=== PATIENT | male | born 1980 | race Caucasian/White ===

== ENCOUNTER 2018-06-25 10:50 | Inpatient (IN) | payer OTHER ==
[2018-06-25 12:51] LABS: WHITE BLOOD COUNT 6.9 10^3/ul (4.8-10.8)
[2018-06-25 12:51] LABS: ADD MAN DIFF? NO; BASOPHILS % 0.6 % (0.0-2.0); EOSINOPHILS # 0.3 10^3/ul (0.0-0.5); EOSINOPHILS % 4.5 % (0.0-7.0); HEMATOCRIT 45.7 % (42.0-52.0); HEMOGLOBIN 15.8 g/dl (14.0-18.0); MEAN CORPUSCULAR HEMOGLOBIN 30.7 pg (29.0-33.0); MEAN CORPUSCULAR HGB CONC 34.6 g/dl (32.0-37.0); MEAN CORPUSCULAR VOLUME 88.7 fl (82.0-101.0); MEAN PLATELET VOLUME 11.2 fl (7.4-10.4); MONOCYTE # 0.4 10^3/ul (0.3-0.9); MONOCYTES % 5.1 % (0.0-11.0); NEUTROPHIL # 3.1 10^3/ul (1.6-7.5); NEUTROPHILS % 45.5 % (39.0-77.0); PLATELET COUNT 267 10^3/UL (140-415); RED BLOOD COUNT 5.15 10^6/ul (4.70-6.10); RED CELL DISTRIBUTION WIDTH 11.9 % (11.5-14.5)
[2018-06-25] MEDS ORDERED: ONDANSETRON (ODT) 4 MG TAB ODT (12:53)
[2018-06-25 13:07] LABS: ALANINE AMINOTRANSFERASE 163 IU/L (13-69); ALBUMIN 4.3 g/dl (3.3-4.9); ALBUMIN/GLOBULIN RATIO 1.19; ALKALINE PHOSPHATASE 90 IU/L (42-121); AMYLASE 83 U/L (11-123); ANION GAP 10 (5-13); ASPARTATE AMINO TRANSFERASE 85 IU/L (15-46); BILIRUBIN,INDIRECT 0.2 mg/dl (0-1.1); BILIRUBIN,TOTAL 0.2 mg/dl (0.2-1.3); BLOOD UREA NITROGEN 17 mg/dl (7-20); CARBON DIOXIDE 24 mmol/L (21-31); CHLORIDE 102 mmol/L (97-110); Estimated GFR > 60 mL/min (>60); GLUCOSE 395 mg/dl (70-220); LIPASE 149 U/L (23-300); POTASSIUM 4.4 mmol/L (3.5-5.1); SODIUM 136 mmol/L (135-144); TOTAL PROTEIN 7.9 g/dl (6.1-8.1)
[2018-06-25 13:10] LABS: UR BACTERIA FEW /HPF (NONE SEEN); UR RBC 0 /HPF (0-5); UR WBC 0 /HPF (0-5)
[2018-06-25 13:14] LABS: INR 0.89; PARTIAL THROMBOPLASTIN TIME 23.6 Sec (23.0-35.0); PROTIME 12.2 Sec (11.9-14.9)
[2018-06-25 13:15] LABS: ADD UMIC NO; UR ASCORBIC ACID NEGATIVE (NEGATIVE); UR BILIRUBIN (Dip) NEGATIVE (NEGATIVE); UR BLOOD (Dip) NEGATIVE (NEGATIVE); UR CLARITY CLEAR (CLEAR); UR COLOR YELLOW (YELLOW); UR GLUCOSE (Dip) 3+ mg/dL (NEGATIVE); UR KETONES (Dip) NEGATIVE (NEGATIVE); UR LEUKOCYTE ESTERASE (Dip) NEGATIVE Leu/ul (NEGATIVE); UR NITRITE (Dip) NEGATIVE (NEGATIVE); UR SPECIFIC GRAVITY (Dip) 1.026 (1.003-1.030); UR TOTAL PROTEIN (Dip) NEGATIVE (NEGATIVE); UR UROBILINOGEN (Dip) NEGATIVE (NEGATIVE)
[2018-06-25 13:19] LABS: TROPONIN-I 0.014 ng/ml (0.000-0.120)
[2018-06-25] MEDS ORDERED: ACETAMINOPHEN 325 MG TAB PO (13:30)
[2018-06-25] MEDS ORDERED: ONDANSETRON 4 MG INJ IV ×2 (13:30→17:00)
[2018-06-25] MEDS: AMPHOTERICIN B LIPOSOME 300 MG in DEXTROSE 5% 300 ML IVPB (14:01)
[2018-06-25] MEDS ORDERED: SOD CHLORIDE 0.9% 100 ML (14:27)
[2018-06-25] MEDS ORDERED: IOHEXOL 300MG/ML 150 ML BTL (14:27)
[2018-06-25] MEDS ORDERED: HYDROCODONE/APAP (5/325) TAB PO (17:00)
[2018-06-25] MEDS ORDERED: MAGNESIUM HYDROXIDE 30ML CUP PO (17:00)
[2018-06-25] MEDS ORDERED: NACL 0.9% 3 ML SYG IV (17:00)
[2018-06-25] MEDS ORDERED: AMPHOTERICIN B LIPOSOME 300 MG in DEXTROSE 5% 300 ML IVPB (17:00)
[2018-06-25] MEDS: glipiZIDE 10 MG TAB PO (17:35)
[2018-06-25] MEDS: ACCU-CHEK XX ×2 (17:35→21:00)
[2018-06-25] MEDS ORDERED: GLUCAGON 1 MG INJ IM (18:00)
[2018-06-25] MEDS ORDERED: DEXTROSE 50% 50 ML SYRINGE IV ×2 (18:00)
[2018-06-25] MEDS ORDERED: GLUCOSE GEL 15 GRAM TUBE PO ×2 (18:00)
[2018-06-25] MEDS ORDERED: GLUCOSE GEL 15 GRAM TUBE BUCCAL (18:00)
[2018-06-25] MEDS: SOD CHLORIDE 0.9% 1,000 ML IV (18:01)
[2018-06-25] MEDS: LISINOPRIL 5 MG TAB PO (18:04)
[2018-06-25] MEDS: INSULIN ASPART [NOVOLOG] 3 ML PEN SC ×2 (18:10→20:52)
[2018-06-26] MEDS: ACCU-CHEK XX ×5 (02:00→21:00)
[2018-06-26 05:32] LABS: ADD MAN DIFF? NO
[2018-06-26] MEDS: PANTOPRAZOLE (EC) 40 MG TAB PO (05:43)
[2018-06-26 05:45] LABS: BASOPHIL # 0.1 10^3/ul (0.0-0.1); BASOPHILS % 0.7 % (0.0-2.0); EOSINOPHILS # 0.3 10^3/ul (0.0-0.5); EOSINOPHILS % 4.1 % (0.0-7.0); HEMATOCRIT 46.8 % (42.0-52.0); HEMOGLOBIN 16.2 g/dl (14.0-18.0); LYMPHOCYTES # 2.6 10^3/ul (0.8-2.9); LYMPHOCYTES % 32.3 % (15.0-51.0); MEAN CORPUSCULAR HEMOGLOBIN 30.6 pg (29.0-33.0); MEAN CORPUSCULAR HGB CONC 34.6 g/dl (32.0-37.0); MEAN CORPUSCULAR VOLUME 88.5 fl (82.0-101.0); MEAN PLATELET VOLUME 11.2 fl (7.4-10.4); MONOCYTE # 0.5 10^3/ul (0.3-0.9); MONOCYTES % 6.5 % (0.0-11.0); NEUTROPHIL # 4.5 10^3/ul (1.6-7.5); NEUTROPHILS % 55.9 % (39.0-77.0); PLATELET COUNT 257 10^3/UL (140-415); RED BLOOD COUNT 5.29 10^6/ul (4.70-6.10); RED CELL DISTRIBUTION WIDTH 12.2 % (11.5-14.5)
[2018-06-26 05:45] LABS: WHITE BLOOD COUNT 8.1 10^3/ul (4.8-10.8)
[2018-06-26 05:57] LABS: ALANINE AMINOTRANSFERASE 142 IU/L (13-69); ALBUMIN 4.1 g/dl (3.3-4.9); ALKALINE PHOSPHATASE 88 IU/L (42-121); ANION GAP 10 (5-13); ASPARTATE AMINO TRANSFERASE 77 IU/L (15-46); BILIRUBIN,INDIRECT 0.5 mg/dl (0-1.1); BILIRUBIN,TOTAL 0.5 mg/dl (0.2-1.3); BLOOD UREA NITROGEN 14 mg/dl (7-20); CALCIUM 9.4 mg/dl (8.4-10.2); CARBON DIOXIDE 25 mmol/L (21-31); CHLORIDE 105 mmol/L (97-110); CREATININE 0.77 mg/dl (0.61-1.24); Estimated GFR > 60 mL/min (>60); GLUCOSE 145 mg/dl (70-220); MAGNESIUM 2.1 mg/dl (1.7-2.5); PHOSPHORUS 3.7 mg/dl (2.5-4.9); POTASSIUM 4.2 mmol/L (3.5-5.1); SODIUM 140 mmol/L (135-144); TOTAL PROTEIN 7.5 g/dl (6.1-8.1)
[2018-06-26 07:16] LABS: HEMOGLOBIN A1C 8.8 % (0-5.9)
[2018-06-26] MEDS: SOD CHLORIDE 0.9% 1,000 ML IV (07:59)
[2018-06-26] MEDS: INSULIN ASPART [NOVOLOG] 3 ML PEN SC ×4 (07:59→20:59)
[2018-06-26] MEDS: glipiZIDE 10 MG TAB PO ×2 (08:00→17:21)
[2018-06-26] MEDS: LISINOPRIL 5 MG TAB PO (08:00)
[2018-06-26] MEDS: AMPHOTERICIN B LIPOSOME 300 MG in DEXTROSE 5% 300 ML IVPB (13:27)
[2018-06-27] MEDS: SOD CHLORIDE 0.9% 1,000 ML IV ×3 (01:04→17:38)
[2018-06-27] MEDS: ACCU-CHEK XX ×5 (02:00→21:00)
[2018-06-27] MEDS: PANTOPRAZOLE (EC) 40 MG TAB PO (06:10)
[2018-06-27] MEDS: INSULIN ASPART [NOVOLOG] 3 ML PEN SC ×4 (07:56→21:00)
[2018-06-27] MEDS: glipiZIDE 10 MG TAB PO ×2 (07:57→17:32)
[2018-06-27] MEDS: LISINOPRIL 5 MG TAB PO (08:00)
[2018-06-27] MEDS: AMPHOTERICIN B LIPOSOME 300 MG in DEXTROSE 5% 300 ML IVPB (12:25)
[2018-06-28] MEDS: ACCU-CHEK XX ×5 (02:00→20:43)
[2018-06-28] MEDS: SOD CHLORIDE 0.9% 1,000 ML IV ×3 (02:01→22:05)
[2018-06-28] MEDS: PANTOPRAZOLE (EC) 40 MG TAB PO (05:32)
[2018-06-28 06:41] LABS: ANION GAP 8 (5-13); BLOOD UREA NITROGEN 23 mg/dl (7-20); CALCIUM 9.8 mg/dl (8.4-10.2); CARBON DIOXIDE 25 mmol/L (21-31); CHLORIDE 110 mmol/L (97-110); CREATININE 1.02 mg/dl (0.61-1.24); Estimated GFR > 60 mL/min (>60); GLUCOSE 130 mg/dl (70-220); POTASSIUM 4.2 mmol/L (3.5-5.1); SODIUM 143 mmol/L (135-144)
[2018-06-28 06:59] LABS: PHOSPHORUS 3.9 mg/dl (2.5-4.9)
[2018-06-28 06:59] LABS: MAGNESIUM 2.4 mg/dl (1.7-2.5)
[2018-06-28] MEDS: glipiZIDE 10 MG TAB PO ×2 (07:44→16:59)
[2018-06-28] MEDS: LISINOPRIL 5 MG TAB PO (07:47)
[2018-06-28] MEDS: INSULIN ASPART [NOVOLOG] 3 ML PEN SC ×4 (07:48→20:43)
[2018-06-28] MEDS: AMPHOTERICIN B LIPOSOME 300 MG in DEXTROSE 5% 300 ML IVPB (14:16)
[2018-06-28] MEDS: LIDOCAINE 1% (MPF) 5 ML VIAL SC (15:55)
[2018-06-29] MEDS: ACCU-CHEK XX ×5 (01:19→20:28)
[2018-06-29] MEDS: PANTOPRAZOLE (EC) 40 MG TAB PO (05:41)
[2018-06-29] MEDS: INSULIN ASPART [NOVOLOG] 3 ML PEN SC ×4 (08:00→20:28)
[2018-06-29] MEDS: glipiZIDE 10 MG TAB PO ×2 (08:33→17:29)
[2018-06-29] MEDS: LISINOPRIL 5 MG TAB PO (08:33)
[2018-06-29] MEDS: AMPHOTERICIN B LIPOSOME 300 MG in DEXTROSE 5% 300 ML IVPB (12:48)
[2018-06-29] MEDS: SOD CHLORIDE 0.9% 1,000 ML IV ×2 (17:18→20:55)
[2018-06-29] MEDS: ACETAMINOPHEN 325 MG TAB PO (17:29)
[2018-06-30] MEDS: ACCU-CHEK XX ×4 (01:14→17:08)
[2018-06-30] MEDS: PANTOPRAZOLE (EC) 40 MG TAB PO (05:29)
[2018-06-30 06:04] LABS: ANION GAP 9 (5-13); BLOOD UREA NITROGEN 19 mg/dl (7-20); CALCIUM 9.8 mg/dl (8.4-10.2); CARBON DIOXIDE 23 mmol/L (21-31); CHLORIDE 111 mmol/L (97-110); CREATININE 0.89 mg/dl (0.61-1.24); Estimated GFR > 60 mL/min (>60); GLUCOSE 106 mg/dl (70-220); POTASSIUM 3.8 mmol/L (3.5-5.1); SODIUM 143 mmol/L (135-144)
[2018-06-30 06:11] LABS: MAGNESIUM 2.3 mg/dl (1.7-2.5)
[2018-06-30] MEDS: SOD CHLORIDE 0.9% 1,000 ML IV (07:26)
[2018-06-30] MEDS: glipiZIDE 10 MG TAB PO ×2 (07:57→17:08)
[2018-06-30] MEDS: INSULIN ASPART [NOVOLOG] 3 ML PEN SC ×3 (08:00→17:09)
[2018-06-30] MEDS: LISINOPRIL 5 MG TAB PO (08:02)
[2018-06-30] MEDS: AMPHOTERICIN B LIPOSOME 300 MG in DEXTROSE 5% 300 ML IVPB (12:22)
== END 2018-06-30 18:25 | disposition home health service (06) | DRG 178 ==
LOC: E/R 10:50 → PP2 13:28
PROC: 02HV33Z Insertion of Infusion Device into Superior Vena Cava, Percutaneous Approach (ICD-10-PCS; principal; 2018-06-29)
DX: B38.1 Chronic pulmonary coccidioidomycosis (principal); B38.7 Disseminated coccidioidomycosis; E11.8 Type 2 diabetes mellitus with unspecified complications; E13.40 Other specified diabetes mellitus with diabetic neuropathy, unspecified; K76.0 Fatty (change of) liver, not elsewhere classified; E78.5 Hyperlipidemia, unspecified; I10 Essential (primary) hypertension
CPT/HCPCS: 36569; 71045; 71260; 76937; 78306; 80048; 80053; 81003; 82150; 82962; 83036; 83690; 83735; 84100; 84484; 85025; 85610; 85730; 87040-91; 87086; 93005; 99285-25; A9503